=== PATIENT | female | born 1950 | race Caucasian/White ===

== ENCOUNTER 2018-04-30 05:18 | Observation (INO) ==
[2018-04-30] MEDS ORDERED: Metoprolol Tartrate 25 MG Tablet PO SCH (05:45)
[2018-04-30] MEDS ORDERED: Chlorhexidine Gluconate 2% 1 Pack (2 Cloths) TOPICAL SCH (05:45)
[2018-04-30] MEDS ORDERED: Sodium Chlor 0.9% Inj 500 ML IV.SIG SCH (06:00)
[2018-04-30] MEDS ORDERED: Vancomycin Inj 1 GM/200 ML PIGGYBACK IV.SIG SCH (06:00)
[2018-04-30] MEDS: Chlorhexidine 4% Topical 120 APPLIC/120 ML Bottle TOPICAL SCH ×2 (06:30→06:31)
[2018-04-30] MEDS ORDERED: fentaNYL Citrate Inj 100 MCG/2 ML Ampul ONE ×2 (07:51→10:03)
[2018-04-30] MEDS: ceFAZolin 2 GM Premix Inj 2 GM/50 ML PIGGYBACK IV.SIG SCH (07:55)
[2018-04-30] MEDS ORDERED: Sugammadex Inj 200 MG/2 ML Vial IV.PUSH ONE (08:34)
[2018-04-30] MEDS ORDERED: Morphine Inj 4 MG/ML Vial IV.PUSH PRN (09:28)
--- NOTE | 2018-04-30 09:37 | P.OP ---
- Preoperative Diagnosis (1) Recurrent dislocation, left elbow (2) Fracture of radial head, left, closed Date of procedure: 04/30/18 Procedure: Open reduction internal fixation left radial head fracture, primary repair lateral ulnar collateral ligament, open treatment left elbow dislocation, external fixation left elbow Anesthesia: GETA Surgeon: Faustino aCrrillo MD Population Geneticist: DEWEY Barriga PA-C The surgical procedure was assisted by my physician medical assistant dermatology. My P.A. presence was necessary throughout this case for the manipulation and positioning of the surgical extremity. My P.A. was assisting me throughout the duration of this procedure. The skill set of a physician medical assistant dermatology was medically necessary to complete this procedure. During the surgical case the surgical garment fitter was working at the back table and the physician medical assistant dermatology was directly assisting me. Operation and Findings: Implants used: Arthrex 5.5 mm suture anchor, Orthofix external fixation, ITS 2.5 cannulated screw Details of procedure Dariela had a fall resulting in left elbow fracture dislocation. She was initially treated with closed reduction. Follow-up x-rays revealed recurrent subluxation of her elbow. Informed consent was obtained for surgery after detailed discussion of the risks and benefits of surgery. Operative site was marked. She received IV antibiotics. She was given IV sedation and general anesthesia. Timeout procedure was performed. She was placed into a lateral decubitus position. Left arm was prepped with alcohol followed Hibiclens and draped in usual sterile fashion Procedure began with a 4 inch incision of the lateral aspect of the elbow. Subcu tissue dissected with Bovie. The lateral joint capsule was now open. There was avulsion of the lateral ulnar collateral ligament complex. The radial head fracture was also visualized. The elbow was placed through range of motion. The elbow was very unstable. Clinically, there appeared to be instability of the medial ulnar collateral ligament. At this point an additional medial incision was made directly over the medial epicondyle. Subcu tissue dissected with Bovie. The ulnar nerve was visualized. The medial collateral ligament was examined. The medial ligament complex was intact. Attention was now turned towards the radial head. The radial head fracture was exposed. There was a fracture fragment approximately 30% of the radial head. This fracture was reduced. It reduced in anatomic alignment. 2 guidepins for headless screws were now placed across the fracture site perpendicular to the fracture. Screw lengths were measured. 2 cannulated have the screws were now placed over the guide pins. Good compression was obtained. Fluoroscopy confirmed appropriate placement of hardware Next attention was turned to repair of the lateral ulnar collateral ligament. The elbow was held in a reduced position. Fluoroscopy and direct visualization confirmed reduction of the elbow. The Arthrex 5.5 mm bioabsorbable anchor was now placed at the origin site of the ligament complex. Using the attached FiberWire suture the lateral ulnar collateral ligament and associated capsule were repaired. Next attention was turned to external fixation. A 3 inch incision was made over the lateral aspect of the distal humerus. Subcutaneous tissue assist with Bovie. The cortex of the bone was visualized. Care was taken to avoid injury to the radial nerve. 2 pins were predrilled and placed into the distal humerus shaft. 2 additional pins were placed into the ulnar shaft. External fixator construct was now created. With the elbow held in reduced position the external fixator was tightened hold reduction. Fluoroscopy confirmed excellent alignment fractures with well-placed hardware. The elbow was concentrically reduced. Incisions were not closed with #1 Vicryl, 3-0 Vicryl and adriana. Sterile dressings were applied. Patient was awakened and transferred to recovery room in stable condition. Needle and sponge counts were correct.
[2018-04-30] MEDS ORDERED: Post-op Orders (for Pharmacy) OTHER STA (09:53)
[2018-04-30] MEDS ORDERED: Bupivacaine PF 0.5% Inj 30 ML Vial ONE (10:04)
--- NOTE | 2018-04-30 10:06 | P.DCO ---
- Nursing Nursing: Teach and assist BID pin care Dressing changes: Daily dressing change (left elbow), Xeroform, Coverderm/ Primapore - Certification Need for Home Health services: I have seen patient Dariela Erazo on 04/30/18. My clinical findings support the need for the requested home health care services because: Need for Home Health Services: Limited mobility due to disease progression Homebound Certification: I certify that my clinical findings support that this patient is homebound because: Homebound Certification: Post-op weakness
[2018-04-30] MEDS ORDERED: Lidocaine PF 1% Inj 5 ML Syringe INFILTRATN ONE (12:00)
[2018-04-30] MEDS ORDERED: Phenylephrine/NS 1000 MCG/10ML Syringe IV.PUSH ONE (12:00)
--- NOTE | 2018-04-30 13:41 | XR ---
EXAM DATE: 04/30/2018 1:34 PM EDT AGE/SEX: 67 years / Female INDICATIONS: Left elbow ORIF. CLINICAL DATA: This is the patient's initial encounter. Patient reports that signs and symptoms have been present for 1 day and indicates a pain score of Nonresponsive. MEDICAL/SURGICAL HISTORY: None. None. COMPARISON: No prior exams available for comparison. FINDINGS: Series of intraoperative images demonstrate osseous screws through the diaphysis of the radial head. Sequential images show placement of multiple anchoring devices for external fixators.. CONCLUSION: Placement of external fixator hardware about the elbow as above. Osseous screws secure the base of th e radial head. Electronically signed by: Ángel Melchor MD 04/30/2018 1:40 PM EDT
[2018-04-30] MEDS ORDERED: ceFAZolin 2 GM Premix Inj 2 GM/50 ML PIGGYBACK IV.SIG SCH (16:00)
--- NOTE | 2018-04-30 18:39 | ECG ---
Date Performed: 04/30/2018 Time Performed: 07:10:21 PTAGE: 67 years EKG: Sinus rhythm LOW QRS VOLTAGE IN PRECORDIAL LEADS PATTERN CONSISTENT WITH PULMONARY DISEASE ABNORMAL ECG NO PREVIOUS TRACING DOCTOR: Gilberto Moore Interpretating Date/Time 04/30/2018 18:38:00
[2018-04-30] MEDS: Senna/Docusate Sodium 8.6/50 MG Tablet PO SCH (21:55)
[2018-05-01] MEDS: ceFAZolin 2 GM Premix Inj 2 GM/50 ML PIGGYBACK IV.SIG SCH ×3 (06:11→17:25)
--- NOTE | 2018-05-01 06:31 | P.PNOP ---
Subjective Interval history: Resting comfortably in bed. Block is still effective. She states at this point she still has no feeling in her hand or arm Physical Exam Vital signs: Vital Signs 04/30/18 09:50 04/30/18 10:00 04/30/18 10:15 Temperature 97.5 F L 98.0 F 98.0 F Pulse Rate 67 67 65 Respiratory Rate 16 14 14 Blood Pressure 108/59 L 90/65 L 113/68 Pulse Oximetry 100 100 100 04/30/18 10:30 04/30/18 10:45 04/30/18 11:00 Temperature 98.0 F 98.0 F 98.0 F Pulse Rate 67 71 72 Respiratory Rate 14 14 14 Blood Pressure 119/60 114/56 L 119/59 L Pulse Oximetry 100 100 100 04/30/18 11:30 04/30/18 12:00 04/30/18 12:30 Temperature 98.0 F 98.0 F 98.0 F Pulse Rate 76 75 76 Respiratory Rate 14 14 14 Blood Pressure 121/58 L 119/56 L 124/61 Pulse Oximetry 93 L 92 L 94 L 04/30/18 13:28 04/30/18 16:00 04/30/18 19:40 Temperature 98.0 F 98.8 F 98.1 F Pulse Rate 74 76 87 Respiratory Rate 14 18 17 Blood Pressure 108/59 L 138/67 106/56 L Pulse Oximetry 98 99 94 L 04/30/18 23:58 05/01/18 04:20 Temperature 98.2 F 98.3 F Pulse Rate 86 74 Respiratory Rate 17 17 Blood Pressure 102/54 L 106/59 L Pulse Oximetry 93 L 96 Intake & Output 04/30/18 04/30/18 05/01/18 06:59 18:59 06:59 Intake Total 1999 Output Total 75 / 75 Balance 1924 / 192 Weight 77.7 kg 77.7 kg Intake: IV 1200 / 1200 LR 1000 mL Inj 1,000 ML @ 30 1000 / 1000 mls/hr IV.SIG .Q24H ZI Rx#: [id number] Vancomycin Inj 1 gm In 200 ml @ 200 / 200 200 mls/hr IV.SIG STRAPPING MACHINE OPERATOR ZI Rx#:[id number] Oral 800 / 800 Output: Estimated Blood Loss 75 / 75 Other: Weight On Admission 77.7 kg Narrative: Left upper extremity: Clean dry dressings intact. External fixator in place. Good capillary refills and distal pulses. No movement or sensation in hand due to block Results - Imaging Impressions Elbow X-Ray 04/30/18 00:00 CONCLUSION: Placement of external fixator hardware about the elbow as above. Osseous screws secure the base of the radial head. Assessment and Plan - Ortho Post Op Day # 1 - Problem List (1) Recurrent dislocation, left elbow Code(s): M24.422 - Recurrent dislocation, left elbow Status: Acute (2) Fracture of radial head, left, closed Code(s): S52.122A - Displaced fracture of head of left radius, initial encounter for closed fracture Status: Acute - Assessment and Plan Open reduction internal fixation of left elbow with ligament repair and external fixation POD 1 Nonweightbearing left upper extremity Finish third dose of IV antibiotics We will plan on discharge to home today. Case management needs to set up home health care. [id number] completed. I will come back this morning and add 1 more bar to the external fixator follow-up with Dr. Jacobo or PA in 2 weeks
--- NOTE | 2018-05-01 06:35 | P.DCO ---
- Nursing RN days per week: 5 x week(s): 4 Nursing: Teach and assist BID pin care, Dressing changes, Other (ADLs) Dressing changes: Xeroform, Coverderm/Primapore, Other (Pin care twice daily with half saline half hydrogen peroxide) - Certification Need for Home Health services: I have seen patient Dariela Erazo on 05/01/18. My clinical findings support the need for the requested home health care services because: Need for Home Health Services: Limited ability to care for self Homebound Certification: I certify that my clinical findings support that this patient is homebound because: Homebound Certification: Post-op weakness
[2018-05-01] MEDS: Senna/Docusate Sodium 8.6/50 MG Tablet PO SCH (08:27)
[2018-05-01] MEDS ORDERED: Lisinopril 20 MG Tablet PO SCH (09:00)
[2018-05-01] MEDS ORDERED: PHENTERMINE 15 MG PO SCH (09:00)
== END 2018-05-01 17:51 | disposition home health service (06) ==
LOC: HSDC 05:18 → HSDI 05:18 → N06 05:18
PROVIDERS: ADMIT Orthopaedic Surgery Orthopaedic Trauma; ATTEND Orthopaedic Surgery Orthopaedic Trauma